=== PATIENT | female | born 1965 | race Caucasian/White ===

== ENCOUNTER → 2017-08-21 | Outpatient (CLI) | payer BC ==
[~2017-08-21] MED LIST: ALBUAER INH; ASMIN/30 INH; BUDESUS NAE; CLOB-65 EXT; ESSENTIAL OILS; IBUP-103 PO; MOMETASONE EX; OMEP20CA9 PO; PSEU30TA20 PO
--- NOTE | 2017-08-21 09:25 | DIAGNOSTIC IMAGING REPORT ---
ABDOMEN LIMITED (US) CLINICAL HISTORY: 51 years-old Female presenting with L UPPER QUADRANT PAIN. TECHNIQUE: Real-time grayscale ultrasound imaging of the left upper quadrant of the abdomen was performed. Color and spectral Doppler were also performed. COMPARISON: None. FINDINGS: Spleen: Normal echogenicity and size, measuring 12.6 cm in maximal sagittal dimension. Normal splenic hilar vascularity and arterial and venous waveforms. Left kidney: Normal appearance and size, measuring 11.7 cm. No hydronephrosis. Normal perfusion. Other: At the site of clinical interest in the left upper quadrant, no focal fluid collection is noted. Normal subcutaneous fat. No free fluid in the abdomen. IMPRESSION: 1. At the site of clinical interest, no focal abnormality. 2. Normal sonographic appearance of the spleen and left kidney. Electronically signed by: Donaldo Moreno M.D. 08/21/2017 9:24 AM Dictated Date/Time: 08/21/2017 9:20 AM
== END | disposition home or self-care (01) ==
LOC: C.ULTR 08:42
PROVIDERS: ATTEND Family Medicine
DX: R10.12 Left upper quadrant pain (principal)

== ENCOUNTER → 2017-09-11 | Outpatient (CLI) | payer BC ==
[~2017-09-11] MED LIST changes: -ALBUAER INH; +APRE1TAB3 PO; +BUDE1SUS8 NAE; -BUDESUS NAE; -CLOB-65 EXT; -IBUP-103 PO; -MOMETASONE EX; -PSEU30TA20 PO; +VNTHFA/IN INH
--- NOTE | 2017-09-11 14:31 | MAMMOGRAPHY REPORT ---
BILATERAL DIGITAL DIAGNOSTIC MAMMOGRAM TOMOSYNTHESIS WITH CAD: 09/11/2017 CLINICAL HISTORY: The patient reports bilateral intermittent breast soreness/twinges, with the sympto ms located at different sites at different times. She denies any palpable lumps, nipple discharge, o r other complaints. She reports a family history of breast cancer in her grandmother. TECHNIQUE: Breast tomosynthesis in addition to standard 2D mammography was performed. Current study was also evaluated with a Computer Aided Detection (CAD) system. Bilateral CC and MLO 2-D and tomosy nthesis images were obtained. COMPARISON: Comparison is made to exams dated: 02/08/2016 mammogram, 07/15/2013 mammogram, 07/26/2010 ma mmogram - [facility], 03/01/2008, 02/26/2007, and 01/17/2005 mammogram - [facility]. BREAST COMPOSITION: The tissue of both breasts is almost entirely fatty. FINDINGS: There are no suspicious masses, calcifications, or areas of architectural distortion noted in either breast. There has been no significant interval change mammographically compared to prior exams. IMPRESSION: ACR BI-RADS CATEGORY 1: NEGATIVE There is no mammographic evidence of malignancy in either breast. Recommend clinical follow-up for i ntermittent bilateral breast pain, and recommend routine bilateral screening mammograms in one year. The patient has been verbally notified of the results. Approximately 10% of breast cancers are not detected with mammography. A negative mammographic report should not delay biopsy if a clinically suggestive mass is present. Annabel Banuelos M.D. ah/:09/11/2017 11:34:44 Front End Manager: Daria NORIEGA(Lulu)(Elliott), [facility] letter sent: Normal 1/2 BI-RADS Code: ACR BI-RADS Category 1: Negative
== END | disposition home or self-care (01) ==
LOC: C.MAMM 09:50
PROVIDERS: ATTEND Family Medicine
DX: N64.4 Mastodynia (principal)